=== PATIENT | female | born 1950 | race Caucasian/White ===

== ENCOUNTER 2018-08-05 13:13 | Outpatient (CLI) | payer MEDICARE, OTHER | END 2018-08-05 13:14 | disposition home or self-care (01) | LOC: BICMAMMO 13:13 | PROVIDERS: ATTEND Obstetrics & Gynecology | DX: Z12.31 Encounter for screening mammogram for malignant neoplasm of breast (principal); N64.89 Other specified disorders of breast | CPT/HCPCS: 77063; 77067 ==

== ENCOUNTER 2018-08-14 13:14 | Outpatient (CLI) | payer MEDICARE, OTHER | END 2018-08-14 13:15 | disposition home or self-care (01) | LOC: BICMAMMO 13:14 | PROVIDERS: ATTEND Obstetrics & Gynecology | DX: R92.2 Inconclusive mammogram (principal) | CPT/HCPCS: 77065; G0279 ==